=== PATIENT | male | born 1955 | race Two or more races ===

== ENCOUNTER → 2024-05-14 | Outpatient (CLI) | payer MEDICARE, MEDICAID, SELFPAY ==
--- NOTE | 2024-05-14 15:12 | XR_ITS ---
Examination: Bilateral hands, 6 views. Technique: AP, Oblique, Lateral each hand total 6 views Date and time of exam: May 14, 2024 1515 hours INDICATIONS: Hand joint pain months Findings: Moderate osteopenia Mild diffuse narrowing joints of the wrist and hands bilaterally No erosive arthritis Old healed fracture distal right fifth metacarpal No acute fracture Old fracture left fifth metacarpal with adjacent 2 mm foreign body IMPRESSION: Mild diffuse narrowing joints of the wrist and hand bilaterally No erosive arthritis Old fractures as above
--- NOTE | 2024-05-14 15:12 | XR_ITS ---
Examination: Bilateral wrists 6 views TECHNIQUE: AP oblique lateral each wrist total 6 views Exam date and time: May 14, 2024 at 1520 hours INDICATIONS: Numbness in the wrists and hands 2 months lump on the lateral side of the right first digit FINDINGS: Moderate osteopenia Mild diffuse narrowing joints of the wrists bilaterally No erosive arthritis No cortical bone destruction Old fractures distal fifth metacarpals bilaterally with 2 mm foreign body in the soft tissue adjacent to the distal left fifth metacarpal No avascular necrosis IMPRESSION: Mild diffuse narrowing joints of the wrists bilaterally Old fractures distal fifth metacarpals bilaterally with 2 mm foreign body in the soft tissue adjacent to the distal left fifth metacarpal Recommend ultrasound soft tissue follow-up of any palpable lump lateral side of the right first digit
== END | disposition home or self-care (01) ==
PROVIDERS: PCP Nurse Practitioner Family
DX: M25.842 Other specified joint disorders, left hand (principal); M25.841 Other specified joint disorders, right hand; Z87.81 Personal history of (healed) traumatic fracture; M25.832 Other specified joint disorders, left wrist; M25.831 Other specified joint disorders, right wrist; S60.457A Superficial foreign body of left little finger, initial encounter; X58.XXXA Exposure to other specified factors, initial encounter
CPT/HCPCS: 73110; 73130